=== PATIENT | male | born 1985 | race Two or more races ===

== ENCOUNTER 2021-03-14 12:52 | Emergency (ER) | payer SELFPAY ==
[~2021-03-14] VITALS: Ht 190.5 cm; Wt 100.0 kg
[2021-03-14 13:17] VITALS: BP 121/69
[2021-03-14 18:44] LABS: BASOPHILS % 1.1 % (0.0-2.0); EOSINOPHILS % 1.6 % (0.0-5.0); HEMATOCRIT. 41.8 % (42.0-52.0); HEMOGLOBIN. 13.9 g/dL (14.0-18.0); LYMPHOCYTES % 41.8 % (20.0-50.0); MEAN PLATELET VOLUME 7.5 fl (7.4-10.4); MONOCYTES % 9.9 % (2.0-8.0); NEUTROPHILS % 45.6 % (40.0-76.0); PLATELET 271 x1000/uL (130-400); RED BLOOD CELL COUNT 4.49 mill/uL (4.7-6.1); RED CELL DISTRIBUTION WIDTH 13.3 % (11.6-14.6)
[2021-03-14 18:47] LABS: CHLORIDE 109 mEq/L (98-107)
== END 2021-03-14 19:14 | disposition home or self-care (01) ==
LOC: ER 12:52 → EDSEX 12:52 → ER 19:14
DX: R07.89 Other chest pain (principal); F12.10 Cannabis abuse, uncomplicated
CPT/HCPCS: 36415; 71045; 80053; 82962; 84484; 85025; 93005; 99285

== ENCOUNTER 2025-01-21 19:51 | Emergency (ER) | payer OTHER ==
[~2025-01-21] VITALS: Ht 190.5 cm; Wt 109.2 kg
[2025-01-21 20:07] VITALS: O2SAT 99
[2025-01-21 20:28] VITALS: BP 153/89; PULSE 105; RESP 18; TEMP 36.7; O2SAT 98
[2025-01-21] MEDS ORDERED: PERM60CR4 TP (20:51)
== END 2025-01-21 21:05 | disposition home or self-care (01) ==
LOC: ER 19:51
DX: B86 Scabies (principal); F12.90 Cannabis use, unspecified, uncomplicated; Z79.899 Other long term (current) drug therapy
CPT/HCPCS: 99282